=== PATIENT | male | born 1990 | race Hispanic/Latino ===

== ENCOUNTER 2016-07-23 02:28 | Observation (INO) | payer OTHER ==
[2016-07-23] MEDS ORDERED: TDAP Vaccine 0.5 mL Syr IM ONE (02:54)
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
--- NOTE | 2016-07-23 05:43 | ED PDOC ---
- ECG O2 Sat by Pulse Oximetry: 97 Medical Decision Making Medical Decision Making: Patient s/o from Jacinta Bruno PA-C at 0600 pending sobriety and re-eval. Patient s/ o to Dr. Barrientos at 0700 pending sobriety and re-eval. Scribe Attestation: Documented by Mojgan Dailey acting as a scribe for Dillon Clark MD. Provider Scribe Attestation: All medical record entries made by the Scribe were at my direction and personally dictated by me. I have reviewed the chart and agree that the record accurately reflects my personal performance of the history, physical exam, medical decision making, and the department course for this patient. I have also personally directed, reviewed, and agree with the discharge instructions and disposition. Disposition - Clinical Impression Clinical Impression: Nasal fracture, Facial injury, Alcohol intoxication - POA Present On Arrival: None - Disposition Disposition: Transfer of Care Disposition Time: 07:00 Condition: STABLE Patient Signed Over To: Bridger Barrientos Handoff Comments: pending sobriety and re-eval
--- NOTE | 2016-07-23 07:17 | ED PDOC ---
- ECG O2 Sat by Pulse Oximetry: 99 Medical Decision Making Medical Decision Making: Time: 0700 Patient signed out by Dr. Clark pending sobriety and re-evaluation Scribe Attestation: Documented by Pauline Earl acting as a scribe for Kathy Barrientos MD MD Scribe Attestation: All medical record entries made by the Scribe were at my direction and personally dictated by me. I have reviewed the chart and agree that the record accurately reflects my personal performance of the history, physical exam, medical decision making, and the department course for this patient. I have also personally directed, reviewed, and agree with the discharge instructions and disposition. 1221: Stable. AAOx3. Pain free. Ambulated with no issues. Fu with pcp. Disposition - Clinical Impression Clinical Impression: Nasal fracture, Facial injury, Alcohol intoxication - POA Present On Arrival: None - Disposition Disposition: Routine/Home Disposition Time: 12:21 Condition: STABLE
--- NOTE | 2016-07-23 10:02 | CT ---
PROCEDURE: CT scan of the brain dated 07/23/2016. HISTORY: AMS COMPARISON: Correlation made with concurrent CT scan of the orbits TECHNIQUE: Axial computed tomography images were obtained through the head/brain without intravenous contrast. Radiation dose: Total exam DLP = 1541.09 mGy-cm. This CT exam was performed using one or more of the following dose reduction techniques: Automated exposure control, adjustment of the mA and/or kV according to patient size, and/or use of iterative reconstruction technique. FINDINGS: HEMORRHAGE: No intracranial hemorrhage. BRAIN: No mass effect or edema. No atrophy or chronic microvascular ischemic changes. VENTRICLES: Unremarkable. No hydrocephalus. CALVARIUM: No acute fracture seen. Moderate -significant left premaxillary soft tissue swelling extends over the left zygomatic arch superiorly into the periorbital supraorbital and left frontotemporal region. PARANASAL SINUSES: Unremarkable as visualized. Minor mucosal thickening noted within the ethmoid air complex. There is also minor mucosal thickening floor is both maxillary MASTOID AIR CELLS: Unremarkable as visualized. No inflammatory changes. OTHER FINDINGS: Antra the bony orbits appear intact so far as can be seen. IMPRESSION: No acute intracranial hemorrhage. Moderate to fairly significant elevation soft tissue swelling which extends superiorly over the left frontotemporal region
--- NOTE | 2016-07-23 10:09 | CT ---
PROCEDURE: CT Cervical Spine without contrast HISTORY: <R/O FX> COMPARISON: None available. TECHNIQUE: Axial computed tomography images were obtained of the cervical spine without the use of intravenous contrast. Coronal and sagittal reformatted images were created and reviewed. Radiation dose: Total exam DLP = 633.89 mGy-cm. This CT exam was performed using one or more of the following dose reduction techniques: Automated exposure control, adjustment of the mA and/or kV according to patient size, and/or use of iterative reconstruction technique. FINDINGS: VERTEBRAE: No acute compression fractures no retropulsed fragments. Vertebral bodies exhibit normal stature. Vertebral bodies and facets normally aligned. DISCS/SPINAL CANAL/NEURAL FORAMINA: Minor degenerative spondylosis seen at the C5-C6 level. Changes include mild disc space narrowing more so along the anterior disc margin with small irregular osteophytic ridge disc bulge complex larger on the right than left. Changes do apparently result in mild canal narrowing and cord compression more so on the right side. Followup MRI could be performed confirm and further evaluate the extent of canal narrowing. Minimal degenerative squaring of the uncovertebral joints right greater than left with mild facet overgrowth. . The exit foramina are marginal to adequate. Facet joints are slightly overgrown. At the C4-C5 level demonstrates relatively adequate disc height. No disc herniation or significant disc bulge. Minimal degenerative squaring of the uncovertebral joints. Facets also slightly overgrown. Central canal appears adequate. Exit foramina marginal to minimally narrowed. At the C3-C4 level, there is also adequate disc height. No disc herniation. Minimal degenerative squaring of the uncovertebral joints and prominent facets. Central canal appears adequate. Exit foramina are marginal to adequate. At the C2-C3 level. There is adequate disc height. No disc herniation or significant disc bulge. Minimal overgrowth of the right-sided uncovertebral joint. Mild facet arthropathy. Central canal and left-sided exit foramina appear adequate. Right exit foramen appears marginal to minimally narrowed. At the C6-C7 level, mild streak and beam hardening artifact arising from the dense clavicles and shoulder girdles partially obscure the central canal. PARASPINAL SOFT TISSUES: Unremarkable. OTHER FINDINGS: Note made of prominent palatine tonsils and adenoids not unusual in this age group Lung apices are clear. IMPRESSION: No acute fractures. Mild multilevel degenerative spondylosis most notably affecting the C5-C6 level as detailed above.
--- NOTE | 2016-07-23 10:17 | CT ---
PROCEDURE: CT scan of the orbits dated 07/23/2016 COMPARISON: Correlation made with concurrent CT scan brain. TECHNIQUE: Total exam DLP = 1541.09 mGy-cm. FINDINGS: The at current study reveals moderate significant left premaxillary soft tissue swelling that extends superiorly into the left periorbital, supraorbital and left frontotemporal soft tissues. There is also extension posterolaterally along the left zygomatic arch and left infratemporal fossa region extending superiorly over the left temporal calvarium. The questionable tiny fracture tip of the anterior nasal spine. . Tiny bubble of subcutaneous air not excluded. No additional definitive evidence of acute displaced fracture nor dislocation. The visualized maxillofacial skeletal structures appear intact. Mandible appears intact. Bony orbits are unremarkable. Globes intact and lenses appropriately located. There are no retrobulbar hemorrhages or collections seen. Visualized paranasal sinuses well-developed and currently well-aerated. No fluid levels seen to suggest acute hemorrhage or sinusitis. Minor mucosal thickening present within the floors of both maxillary antra. . The remaining visualized paranasal sinuses are well-developed. Note made of prominent adenoids and palatine tonsils not unusual this age group Impression: Moderate to significant left sided facial soft tissue swelling as described. Swelling extends superiorly into the left frontotemporal region. Questionable tiny fracture tip of the anterior nasal spine. Note that this report was placed in PA review folder for followup
[2016-07-23 12:22] VITALS: O2SAT 99
[2016-07-23 12:33] VITALS: BP 151/95; PULSE 97; RESP 16; TEMP 97.8
== END 2016-07-23 12:22 | disposition home or self-care (01) ==
LOC: H.ER 02:28 → H.EROBSV 05:41
PROVIDERS: ADMIT Emergency Medicine; ATTEND Emergency Medicine
DX: F10.129 Alcohol abuse with intoxication, unspecified (principal); S02.2XXA Fracture of nasal bones, initial encounter for closed fracture; S00.81XA Abrasion of other part of head, initial encounter; Y90.8 Blood alcohol level of 240 mg/100 ml or more; Y04.2XXA Assault by strike against or bumped into by another person, initial encounter; Z23 Encounter for immunization; Y93.9 Activity, unspecified; Y92.9 Unspecified place or not applicable